=== PATIENT | male | born 1995 | race Caucasian/White ===

== ENCOUNTER 2019-01-12 00:53 | Emergency (ER) | payer BC ==
[~2019-01-12] VITALS: Ht 180.3 cm; Wt 72.6 kg
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
[2019-01-12] MEDS ORDERED: HYDROmorphone 1mg/ml Carpuject IM ONE (01:15)
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
[2019-01-12] MEDS ORDERED: Bacitracin Oint UD TOPIC ONE ×2 (01:52→02:00)
[2019-01-12] MEDS ORDERED: IBUPROFEN600 MG ORAL (01:55)
[2019-01-12] MEDS ORDERED: CEPHALEXIN500 MG ORAL (01:55)
[2019-01-12] MEDS ORDERED: HYDROCODON-ACE1 EA15 ORAL (01:55)
[2019-01-12] MEDS ORDERED: Cephalexin 500mg cap ORAL ONE (02:00)
--- NOTE | 2019-01-12 02:05 | NUR ---
ED Nurse Note: Pt being d/c to home, pt has splint cast applied to left ankle along with sutures by md, bactiracin ointment and clean,dry dressing applied before splinting per md, pt tolerating well, denies pain, meds given effective, pt has friends at bedside to assist home, pt given f/u info, after care instructions and re-verbalizes proper medication administration, pt also given crutches with crutch training and return demonstrates proper use and safety measures, pt leaving on crutches and with nad noted.
[2019-01-12 02:20] VITALS: BP 121/77
[2019-01-12 03:35] VITALS: BP 128/68
--- NOTE | 2019-01-12 16:44 | Diagnostic Imaging Report ---
Indication: Pain in left foot , ankle trauma Technique: 3 views of the left ankle Comparison: none Findings: There is soft tissue swelling over the lateral malleolus. Calcifications are seen inferior to the medial malleolus. No definite acute fractures. No dislocations. The joint spaces are preserved. Impression: Evidence of lateral soft tissue injury No definite acute bony trauma Calcifications inferior to the medial malleolus, may reflect old avulsion fracture or, more likely, heterotopic ossification related to prior injury.
== END 2019-01-12 02:30 | disposition home or self-care (01) ==
LOC: EMR 01:29
DX: S93.402A Sprain of unspecified ligament of left ankle, initial encounter (principal); S91.012A Laceration without foreign body, left ankle, initial encounter; X50.1XXA Overexertion from prolonged static or awkward postures, initial encounter; Y92.9 Unspecified place or not applicable
CPT/HCPCS: 12001; 29515; 73610; 96372; 99283; J1170